=== PATIENT | male | born 1960 | race Caucasian/White ===

== ENCOUNTER 2021-09-17 10:14 | Emergency (ER) | payer MEDICAID, OTHER ==
[~2021-09-17] VITALS: Ht 177.8 cm; Wt 72.0 kg
[2021-09-17 10:30] VITALS: BP 130/91
== END 2021-09-17 12:58 | disposition home or self-care (01) ==
LOC: ER 10:15
DX: S89.91XA Unspecified injury of right lower leg, initial encounter (principal); R20.0 Anesthesia of skin; Z98.890 Other specified postprocedural states; X58.XXXA Exposure to other specified factors, initial encounter; Y93.89 Activity, other specified; Y92.89 Other specified places as the place of occurrence of the external cause; Y99.8 Other external cause status
CPT/HCPCS: 73564; 99283